=== PATIENT | male | born 1995 | race Caucasian/White ===

== ENCOUNTER → 2016-07-06 | Outpatient (CLI) | payer OTHER ==
[~2016-07-06] MED LIST: ASTN; CETI10TA10 PO; DIPH25CA65 PO; FLUT27.5 NAE
== END | disposition home or self-care (01) ==
LOC: C.RDSM 12:20
PROVIDERS: ATTEND Family Medicine
DX: M46.1 Sacroiliitis, not elsewhere classified (principal)

== ENCOUNTER → 2017-02-26 | Outpatient (CLI) | payer OTHER ==
--- NOTE | 2017-02-26 09:57 | DIAGNOSTIC IMAGING REPORT ---
LEFT WRIST MIN 3 VIEWS ROUTINE CLINICAL HISTORY: 21 years-old Male presenting with LEFT WRIST PAIN. TECHNIQUE: Frontal, oblique, and lateral views of the left wrist were obtained. COMPARISON: None. FINDINGS: Subtle sclerosis noted in the distal radial metaphysis. No displaced acute fracture or malalignment. Minimal cortical irregularity along the distal metaphyses of the radius and ulna likely relates to closing physes. Radiocarpal, intercarpal, and carpometacarpal articulations intact. IMPRESSION: Subtle sclerosis noted across the distal radial metaphysis, which raises concern for stress fracture. Further evaluation with noncontrast MR is recommended to confirm bony edema and a potential fracture plane. Electronically signed by: Mahesh Cain M.D. 02/26/2017 9:56 AM Dictated Date/Time: 02/26/2017 9:54 AM
== END | disposition home or self-care (01) ==
LOC: C.RDSM 13:48
PROVIDERS: ATTEND Family Medicine
DX: M25.532 Pain in left wrist (principal); M85.832 Other specified disorders of bone density and structure, left forearm

== ENCOUNTER → 2017-02-28 | Outpatient (CLI) | payer OTHER ==
--- NOTE | 2017-02-28 23:58 | DIAGNOSTIC IMAGING REPORT ---
LEFT UPPER EXT JOINT WITHOUT CLINICAL HISTORY: 21 years-old Male with L WRIST PAIN, R/O STRESS FX. Acute right wrist pain for 3 weeks. Patient is involved in gymnastics. COMPARISON: Left wrist radiographs 02/26/2017 TECHNIQUE: Multiplanar, multi sequence MRI of the left wrist was performed without intravenous contrast. FINDINGS: EXTRINSIC LIGAMENTS: The volar extrinsic ligaments including the ofpel-woronj-buducsfj and zitzz-phbw-xabdkskqzi ligaments are grossly intact. INTRINSIC LIGAMENTS: The scapholunate and lunotriquetral ligaments are intact and unremarkable in appearance. No evidence of scapholunate or lunotriquetral interval widening. TFCC: There is a thin zone perforation of the TFCC as seen on image 38 of the 3-D coronal merge series. The extensor carpi ulnaris tendon, the volar and dorsal distal radioulnar ligaments and the ulnolunate and ulnotriquetral ligaments. BONE MARROW: Scattered areas of focal mild edema-like marrow signal are noted throughout the carpus, notably within the proximal subcortical scaphoid, lunate and triquetrum and greatest within the dorsal capitate, nicely seen on images 14 and 15 of the coronal STIR series and image 13 of the axial T2 series. There is no evidence of associated fracture. Linear sclerosis in the distal radial metaphysis, best seen on the coronal T1 series is again noted suggesting a physeal arrest line. No focal bone marrow edema within this distribution. JOINT SPACES: Joint spaces are maintained. No focal articular cartilage loss or osteochondral lesion. Note is made of mild positive ulnar variance, 4 mm. CARPAL TUNNEL: The contents of the carpal tunnel are unremarkable in appearance without evidence of carpal tunnel syndrome. The flexor tendons and median nerve are unremarkable in appearance. The flexor retinaculum is unremarkable. The ulnar nerve appears unremarkable. EXTENSOR TENDONS: The extensor tendons are unremarkable, without tenosynovitis, tear or degeneration. No evidence of dislocation or subluxation of the extensor tendons. SOFT TISSUES: There is a small circumscribed ovoid T2 hyperintense lesion, 6 x 4 x 7 mm along the volar portion of the pisiform suggesting small ganglion as seen on image 18 of the sagittal T2 series. IMPRESSION: 1. Thin zone perforation of the TFCC is noted with 4 mm positive ulnar variance. 2. Scattered areas of focal mild edema-like marrow signal are noted throughout the carpus, notably within the proximal subcortical scaphoid, lunate and triquetrum and greatest within the dorsal capitate as above suggesting focal bone marrow contusions without fracture. 3. No stress fracture. 4. Linear sclerosis of the distal radial metaphysis without bone marrow edema suggests physeal arrest line. 5. Subcentimeter ganglion is noted adjacent to the volar aspect of the pisiform. The above report was generated using voice recognition software. It may contain grammatical, syntax or spelling errors. Electronically signed by: Domenico Braun M.D. 02/28/2017 11:56 PM Dictated Date/Time: 02/28/2017 10:40 PM
== END | disposition home or self-care (01) ==
LOC: C.MRI 20:14
PROVIDERS: ATTEND Family Medicine
DX: M25.532 Pain in left wrist (principal); M89.8X3 Other specified disorders of bone, forearm; M67.432 Ganglion, left wrist

== ENCOUNTER → 2017-04-02 | Outpatient (CLI) | payer OTHER ==
--- NOTE | 2017-04-02 14:07 | DIAGNOSTIC IMAGING REPORT ---
R SHOULDER MIN 2 VIEWS HISTORY: 21 years-old Male RIGHT SHOULDER PAIN acute right shoulder pain COMPARISON: None available TECHNIQUE: 3 views of the right shoulder FINDINGS: Glenohumeral and acromioclavicular joints are located and appear normal. Right humerus and clavicle are intact. Ill-defined linear lucency of the inferior angle of the scapula is seen on the Y view. Imaged lung fontana and soft tissues are unremarkable. IMPRESSION: 1. Ill-defined linear lucency of the inferior scapular angle may reflect artifact or acute nondisplaced fracture. Correlate with point tenderness. 2. Bones otherwise appear intact. The above report was generated using voice recognition software. It may contain grammatical, syntax or spelling errors. Electronically signed by: Domenico Braun M.D. 04/02/2017 2:06 PM Dictated Date/Time: 04/02/2017 2:03 PM
== END | disposition home or self-care (01) ==
LOC: C.RDSM 11:50
PROVIDERS: ATTEND Family Medicine
DX: M25.511 Pain in right shoulder (principal)

== ENCOUNTER → 2017-11-01 | Outpatient (CLI) | payer OTHER ==
[~2017-11-01] MED LIST changes: +GADAVIST IV PRN; +MELO7.5T5 PO
--- NOTE | 2017-11-01 11:48 | DIAGNOSTIC IMAGING REPORT ---
FLUOROSCOPICALLY GUIDED RIGHT SHOULDER ARTHROGRAM PRIOR TO MRI CLINICAL HISTORY: Right shoulder pain. COMPARISON STUDY: Right shoulder radiographs April 02, 2017. Fluoroscopy time: 13 seconds. FINDINGS: Single fluoroscopic image was obtained. The procedure, risks and benefits were discussed with the patient and performed pre and consent was obtained. The procedure was performed by Dr. Land following a timeout. Skin overlying the right glenohumeral joint was prepped and draped in sterile fashion and local anesthesia was achieved with 1% lidocaine. Under intermittent fluoroscopic guidance, a 3 1/2 inch 22-gauge needle was directed into the right glenohumeral joint. Positioning within the joint space was confirmed with injection of a small amount of contrast. At this time, a mixture of 0.05 cc of gadolinium, 10 cc of Optiray 300 cc and 10 cc of normal saline was injected into the right shoulder joint. The needle was removed. The patient tolerated the procedure well and no immediate complications were evident. IMPRESSION: Fluoroscopically guided right shoulder arthrogram prior to MRI. Electronically signed by: Wiley Land M.D. 11/01/2017 11:46 AM Dictated Date/Time: 11/01/2017 11:45 AM
--- NOTE | 2017-11-01 11:57 | DIAGNOSTIC IMAGING REPORT ---
MRI ARTHROGRAM OF THE RIGHT SHOULDER CLINICAL HISTORY: Right shoulder pain. Gymnastics injury. COMPARISON STUDY: Radiographs of the right shoulder dated 04/02/2017. TECHNIQUE: Following the intra-articular administration of gadolinium contrast, MR arthrogram of the right shoulder was performed utilizing various T1 and T2 weighted sequences in the axial, sagittal, coronal planes. FINDINGS: Rotator cuff: The supraspinatus and intraspinous tendons are preserved. The teres minor and subscapularis tendons are intact. There is no subacromial or subdeltoid bursal fluid. The acromioclavicular joint is unremarkable. Biceps tendon: The long head of the biceps tendon is normal in signal intensity and located within the bicipital groove. The anchor is maintained. Labrum: There is a SLAP tear of the glenoid labrum. Shoulder joint: The joint space is well distended with intra-articular contrast. The articular cartilage over the glenoid is well maintained. Normal marrow signal intensity is preserved of the visualized osseous structures. Musculature and soft tissues: The musculature of the shoulder is normal in bulk and signal intensity. No atrophy is seen. IMPRESSION: 1. There is a SLAP tear of the glenoid labrum. 2. The rotator cuff is intact. 3. The long head of the biceps tendon is normal in appearance. 4. No osseous abnormality is seen. Electronically signed by: Elliot Acevedo M.D. 11/01/2017 11:55 AM Dictated Date/Time: 11/01/2017 11:50 AM
== END | disposition home or self-care (01) ==
LOC: C.MRIBC 09:55
PROVIDERS: ATTEND Family Medicine
DX: M25.511 Pain in right shoulder (principal); S43.431A Superior glenoid labrum lesion of right shoulder, initial encounter; X58.XXXA Exposure to other specified factors, initial encounter

== ENCOUNTER 2017-11-03 13:40 | Emergency (ER) | payer OTHER ==
[~2017-11-03] VITALS: Ht 175.3 cm; Wt 74.9 kg
[~2017-11-03 13:40] MED LIST changes: -GADAVIST IV PRN; -MELO7.5T5 PO
[2017-11-03 13:47] VITALS: TEMP 36.6; Ht 175.3 cm; Wt 74.9 kg
[2017-11-03] MEDS ORDERED: SODIUM CHLORIDE 0.9% 1000ML 1,000 ML IV STA (13:57)
[2017-11-03] MEDS ORDERED: RANITIDINE HCL 50 MG/100 ML D5W IV STA (13:57)
[2017-11-03] MEDS ORDERED: DiphenhydrAMINE HCL 50 MG/ML VIAL IV STA (13:57)
--- NOTE | 2017-11-03 14:12 | EMERGENCY ROOM VISIT NOTE ---
ED Visit Note First contact with patient: 13:51 CHIEF COMPLAINT: Allergic reaction HISTORY OF PRESENT ILLNESS: This 21-year-old male patient presents to the emergency department by private vehicle after they developed sudden onset of nausea and mouth dryness after eating a salad dressing that had walnuts in it. Patient states he is severely allergic to all tree nuts. This occurred at approximately 1:30 PM today. Patient denies any throat tightness or itching, facial or lip swelling, itching, or rash. He denies any shortness of breath, wheezing, or chest tightness. He states he has had multiple previous reactions and like this before, and states that he has had delayed onset of anaphylaxis 1- 2 hours after exposure in the past. He states the last time he had anaphylaxis was approximately 2 months ago at another hospital, he denies intubation or hospitalization, but states he had to receive doses of epinephrine and was monitored for several hours. The patient did not use his EpiPen and did not take any medications prior to arrival. Patient denies any headaches, vision changes, neck pain or stiffness, chest pain, abdominal pain, back pain, vomiting , diarrhea, fevers or chills, recent illness, urinary symptoms. REVIEW OF SYSTEMS: A review of systems was performed with positives and pertinent negatives listed in the history of present illness. All other systems were reviewed and are negative. ALLERGIES: Reviewed in chart MEDICATIONS: Reviewed in chart PMH: Reviewed in chart SOCIAL HISTORY: Lives at home. He is a [employer] student. He denies tobacco use. PHYSICAL EXAM:VITALS: Vitals are noted on the nurse's note and reviewed by myself. Vital signs stable. CONSTITUTIONAL: Pleasant and cooperative, non-diaphoretic, in no acute distress. Well hydrated, well appearing and well nourished. HEENT: Normocephalic, atraumatic. PERRLA, EOMI, no discharge or injection, normal conjunctiva. There is no periorbital swelling. TMs normal. Pharynx normal with no pharyngeal edema or injection, no exudate or tonsillar hypertrophy. Airway patent. There is no lip swelling. Moist mucous membranes. NECK: Supple, full active range of motion without discomfort. No cervical adenopathy. RESPIRATORY: Clear to auscultation bilaterally with no wheezing, crackles, rhonchi. No stridor. Equal expansion bilaterally. CARDIOVASCULAR: Regular rate and rhythm with no murmurs, rubs or gallops. Normal peripheral perfusion. No edema. GASTROINTESTINAL: Soft, nontender, nondistended. Bowel sounds present in all quadrants. MUSCULOSKELETAL: Full range of motion of all joints without discomfort. INTEGUMENTARY: No rash or other significant dermatologic conditions noted. NEUROLOGIC: Alert and oriented 4. Normal speech. Normal gait observed. No focal neurologic deficits noted. ED COURSE AND MEDICAL DECISION MAKING: CC: Patient presenting with complaint of allergic reaction DIFFERENTIAL DIAGNOSIS: Includes, but not limited to allergic reaction, dehydration, anaphylaxis, gastroenteritis/food poisoning, among others. MEDICATION RECONCILIATION: I attest that I have personally reviewed the patient 's current medication list. INITIAL VITAL SIGNS REVIEW: I reviewed the patient's initial vital signs and interpret them as follows: T: Afebrile; BP: Normotensive; HR: Within normal limits; RR: Within normal limits; Pulse Ox: Within normal limits on room air. Blood pressure screening: The patient was found to have normal blood pressure on screening and does not require follow-up for repeat blood pressure check. SUMMARY: Patient was evaluated at bedside, history and physical exam performed. Patient is alert and oriented, no acute distress, resting calmly in the stretcher. Airway is patent, there is no respiratory distress, no wheezing or stridor on exam. No rash or hives noted to the skin. No facial, lip, or throat swelling appreciated on exam. Orders were placed at bedside for NSS IV fluid bolus, Benadryl 50 mg IV, and Zantac 50 mg IV to treat for allergic reaction. Patient discussed with Dr. Osman, who agrees with my assessment and plan. The patient was placed on the alarm security or surveillance monitor and monitored closely throughout his stay. Patient reports full resolution of his symptoms, and denies any worsening symptoms. He has not had any shortness of breath or facial swelling. He has not had any rash or hives. Patient reassessed multiple times throughout ED stay, he has remained stable and improved with full resolution of his symptoms. He was monitored for nearly 4 hours in the emergency department without incident. He was deemed appropriate for discharge. Patient was updated on all results and plan for discharge, he was encouraged to follow-up with his primary care provider. Given that the patient never had a full-blown allergic reaction or any swelling or hives, I do not feel he warrants a course of steroids. I did encourage him to continue taking Benadryl for the next few days to avoid any rebound symptoms. Patient was also given strict return precautions should his symptoms worsen, he verbalized understanding. Patient was discharged home in stable condition and ambulatory. Problem List Surgical Problems: (1) H/O wisdom tooth extraction Status: Resolved (2) Hx of inguinal hernia surgery Status: Resolved Current/Historical Medications Scheduled Azelastine Hcl (Astelin Nasal [place]), 1-2 SPRAYS NA BID Cetirizine Hcl (Zyrtec), 1 TAB PO DAILY Diphenhydramine Hcl (Benadryl Allergy), 2 CAP PO DAILY Meloxicam (Mobic), 7.5 MG PO DAILY Allergies Coded Allergies: NUTS (Verified Allergy, Unknown, ANAPHYLAXIS, 11/03/17) Nut Tree (Unverified Allergy, Unknown, anaphylaxis, 11/03/17) Vital Signs Date Time Temp Pulse Resp B/P (MAP) Pulse Ox O2 Delivery O2 Flow Rate FiO2 11/03/17 18:00 54 18 158/59 98 11/03/17 16:00 56 18 127/67 99 Room Air 11/03/17 15:36 49 18 133/74 98 Room Air 11/03/17 14:47 71 15 130/79 100 Room Air 11/03/17 14:37 100 Room Air 11/03/17 14:37 100 Room Air 11/03/17 14:25 70 11/03/17 14:15 Room Air 11/03/17 13:47 36.6 67 18 127/71 98 Room Air Medications Administered Medications (Trade) Dose Ordered Sig/Jovita Route Start Time Stop Time Status Last Admin Dose Admin Ranitidine HCl (zANTac IV) 50 mg NOW STAT IV 11/03/17 13:57 11/03/17 13:59 DC 11/03/17 14:43 50 MG Sodium Chloride 1,000 ml @ 999 mls/hr Q1H1M STAT IV 11/03/17 13:57 11/03/17 14:57 DC 11/03/17 14:28 999 MLS/HR Diphenhydramine HCl (Benadryl Inj) 50 mg NOW STAT IV 11/03/17 13:57 11/03/17 13:59 DC 11/03/17 14:27 50 MG Departure Information Impression Primary Impression: Allergic reaction Dispostion Home / Self-Care Condition GOOD Referrals Haritha Collins MD (PCP) Patient Instructions ED Allergic React Food, EpiPen Auto Injector Dc, My [facility] Additional Instructions You have been treated in the Emergency Department for an Allergic Reaction. You have been treated and monitored in the Emergency Department appropriately. You should take Benadryl (diphenhydramine) 25-50 mg orally every 6 hours for the next 2-3 days. This medication is available [id number]. This is to prevent a rebound allergic reaction in the event that allergens are still present in your system. As with every Emergency Department visit, you should follow-up with your primary care provider in 2-3 days for reevaluation. Return to the Emergency Department if your current symptoms worsen despite treatment course outlined above, or if you develop any of the following symptoms : wheezing, tongue or face swelling, tightness in your throat, shortness of breath, chest pain, or fainting. Problem Qualifiers Primary Impression: Allergic reaction Encounter type: initial encounter Qualified Codes: T78.40XA - Allergy, unspecified, initial encounter
[2017-11-03] MEDS ORDERED: MELO7.5T5 PO (14:16)
[2017-11-03 14:37] VITALS: O2SAT 100
[2017-11-03 18:00] VITALS: BP 158/59; PULSE 54; O2SAT 98
== END 2017-11-03 18:02 | disposition home or self-care (01) ==
LOC: C.EDB 13:42 → C.EDA 18:02
DX: T78.40XA Allergy, unspecified, initial encounter (principal); X58.XXXA Exposure to other specified factors, initial encounter; Z79.899 Other long term (current) drug therapy; Z91.018 Allergy to other foods